=== PATIENT | male | born 1995 | race Caucasian/White ===

== ENCOUNTER 2018-06-16 01:24 | Emergency (ER) | END 2018-06-16 01:40 | disposition left against medical advice (07) | LOC: ERS 01:24 | DX: Z53.21 Procedure and treatment not carried out due to patient leaving prior to being seen by health care provider (principal) ==

== ENCOUNTER 2018-06-16 04:00 | Emergency (ER) | payer SELFPAY ==
[2018-06-16] MEDS ORDERED: Morphine 4 MG/ML VIAL ONE (04:31)
== END 2018-06-16 05:45 | disposition home or self-care (01) ==
LOC: ERS 04:00
DX: K52.9 Noninfective gastroenteritis and colitis, unspecified (principal); F41.9 Anxiety disorder, unspecified
CPT/HCPCS: 36415; 83690; 96361; 96374; J2270